=== PATIENT | female | born 1960 | race Caucasian/White ===

== ENCOUNTER 2017-08-04 10:15 | Inpatient (IN) | payer BC, OTHER ==
[2017-08-04] MEDS ORDERED: ACETAMINOPHEN 500 MG TAB PO ONE (10:58)
[2017-08-04] MEDS ORDERED: ceFAZolin 2 GM/SWFI 2 GM/20 ML SYR IVP ONE (10:58)
[2017-08-04] MEDS ORDERED: morphINE PF 0.2 MG in SYRINGE INTRATHECAL 1 SYR IT ONE (10:58)
[2017-08-04] MEDS ORDERED: GABAPENTIN 300 MG CAP PO ONE (10:58)
[2017-08-04] MEDS ORDERED: LR 1,000 ML IV ONE (10:59)
[2017-08-04] MEDS ORDERED: LIDOCAINE 1% 2 ML INJ ID PRN (10:59)
[2017-08-04] MEDS ORDERED: ceFAZolin 2 GM/DEXTROSE 100 ML IV ONE (11:30)
[2017-08-04] MEDS ORDERED: BUPIVACAINE 0.25% 30 ML SDV ONE ×2 (12:16→14:21)
[2017-08-04] MEDS ORDERED: CHLORHEXIDINE GLUC HIBICLENS 118 ML BTL TP ONE (12:17)
[2017-08-04] MEDS ORDERED: EPINEPHrine 1 MG/ML INJ ONE (12:17)
[2017-08-04] MEDS ORDERED: BACITRACIN 50,000 UNITS/10 ML SYR IRR ONE (12:17)
[2017-08-04] MEDS ORDERED: THROMBIN (BOVINE) 20,000 UNIT VIAL TP ONE (12:17)
--- NOTE | 2017-08-04 12:39 | PDANEPAE ---
ANE Past Medical History - Cardiovascular History Hx Hypertension: Yes Hx Arrhythmias: No Hx Chest Pain: No Hx Coronary Artery / Peripheral Vascular Disease: No Hx CHF / Valvular Disease: No Hx Palpitations: No - Pulmonary History Hx COPD: No Hx Asthma/Reactive Airway Disease: No Hx Recent Upper Respiratory Infection: No Hx Oxygen in Use at Home: No Hx Sleep Apnea: No Sleep Apnea Screening Result - Last Documented: Negative - Neurologic History Hx Cerebrovascular Accident: No Hx Seizures: No Hx Dementia: No - Endocrine History Hx Diabetes: No Hypothyroid: No Hyperthyroid: No Obesity: no - Renal History Hx Renal Disorders: Yes Renal History Comment: UA LEAKAGE USES PAD. FREQUENTLY FEELS LIKE SHE NEEDS TO GO AND DOESN'T - Liver History Hx Hepatic Disorders: No - Neurological & Psychiatric Hx Hx Neurological and Psychiatric Disorders: Yes Neurological / Psychiatric History Comment: MIGRAINES TWICE A YEAR - Cancer History Hx Cancer: No - Congenital Disorder History Hx Congenital Disorders: No - GI History GERD: mild Hx Gastrointestinal Disorders: Yes Gastrointestinal History Comment: INTERMITTENT HEARTBURN USES TUMS. CONSTIPATION - Other Health History Other Health History: RADICULOPATHY. N/T SHILPA LEGS AND FEET - Chronic Pain History Chronic Pain: Yes (LOWER BACK N/T SHILPA LEGS AND FEET) - Surgical History Prior Surgeries: BLADDER SUSPENSION/MESH. SUDHA. LUMBAR LAMINECTOMY 2008. PARTIAL HYST ANE Review of Systems Review of Systems: - Exercise capacity METS (RN): 4 METS ANE Patient History - Allergies Allergies/Adverse Reactions: hydrocodone Allergy (Severe, Verified 08/04/17 11:23) Anaphylaxis promethazine [From Phenergan] Allergy (Severe, Verified 08/04/17 11:23) Combative Sulfa (Sulfonamide Antibiotics) Allergy (Unknown, Verified 08/04/17 11:23) - Home Medications Home Medications: Acetaminophen [Tylenol ES 500 mg (*)] 500 - 1,000 mg PO Q4 PRN 07/12/17 [Last Taken 08/04/17 00:00] Estradiol [Estradiol 1 MG (*)] 1 mg PO DAILY 07/12/17 [Last Taken 08/04/17 05:30 ] Herbals/Supplements -Info Only 1 ea PO DAILY 07/12/17 [Last Taken 07/28/17] Ibuprofen [Motrin (*)] 400 mg PO Q4 PRN 07/12/17 [Last Taken 07/26/17] Lisinopril [Zestril 5 mg (*)] 5 mg PO DAILY 07/12/17 [Last Taken 08/03/17 05:30] - NPO status NPO Since - Liquids (Date): 08/04/17 NPO Since - Liquids (Time): 09:00 NPO Since - Solids (Date): 08/03/17 NPO Since - Solids (Time): 17:00 - Anes Hx Anes Hx: no prior problems - Smoking Hx Smoking Status: Former smoker - Alcohol Use Alcohol Use: Rarely - Family Anes Hx Family Anes Hx: neg - N/A ANE Labs/Vital Signs - Vital Signs Blood Pressure: 134/84 Heart Rate: 64 Respiratory Rate: 14 O2 Sat (%): 96 Height: 170.18 cm Weight: 83.915 kg ANE Physical Exam - Airway Neck exam: FROM Mallampati Score: Class 2 Mouth exam: normal dental/mouth exam - Pulmonary Pulmonary: no respiratory distress, no rales or rhonchi, clear to auscultation - Cardiovascular Cardiovascular: regular rate and rhythym, no murmur, rub, or gallop - ASA Status ASA Status: II ANE Anesthesia Plan Anesthesia Plan: general endotracheal anesthesia Total IV Anesthesia: No
--- NOTE | 2017-08-04 13:11 | PDHPUP ---
History & Physical Update H&P update statement: This history and physical update is based on an assessment of the patient which was completed after admission or registration (within 24 hours), but prior to the surgery/procedure. H&P update: H&P reviewed & patient examined, no change in patient's condition since H&P completed (Consents signed and site marked. All questions answered.)
[2017-08-04] MEDS ORDERED: MIDAZOLAM 2 MG/2 ML VIAL IVP ONE (13:32)
[2017-08-04] MEDS ORDERED: ROCURONIUM 50 MG/5 ML VIAL ONE ×2 (13:43→14:32)
[2017-08-04] MEDS ORDERED: DEXAMETHASONE 4 MG/ML VIAL ONE ×2 (13:43)
[2017-08-04] MEDS ORDERED: ONDANSETRON 4 MG/2 ML VIAL ONE ×3 (13:43→18:42)
[2017-08-04] MEDS ORDERED: LIDOCAINE 2% 5 ML SDV ONE (13:44)
[2017-08-04] MEDS ORDERED: PROPOFOL 200 MG/20 ML VIAL ONE (13:45)
[2017-08-04] MEDS ORDERED: PROPOFOL/EMULSION 500 MG/50 ML BOTTLE IV ONE (13:45)
[2017-08-04] MEDS ORDERED: fentaNYL 100 MCG/2 ML INJ ONE ×5 (13:56→17:42)
[2017-08-04] MEDS ORDERED: METOCLOPRAMIDE 10 MG/2 ML VIAL IVP PRN (15:05)
[2017-08-04] MEDS ORDERED: PHENYLEPHRINE HCL 100 MCG/ML SYR IVP PRN (15:05)
[2017-08-04] MEDS ORDERED: epHEDrine SULFATE 10 MG/ML SYR IVP PRN (15:05)
[2017-08-04] MEDS ORDERED: oxyCODONE IR 5 MG TAB PO PRN (15:05)
[2017-08-04] MEDS ORDERED: NALOXONE HCL 0.4 MG/ML INJ IVP PRN ×2 (15:05→19:58)
[2017-08-04] MEDS ORDERED: ACETAMINOPHEN 500 MG TAB PO PRN (15:05)
[2017-08-04] MEDS ORDERED: LR 500 ML IV PRN (15:05)
[2017-08-04] MEDS ORDERED: HYDROmorphONE/DILAUDID 2 MG/ML INJ IVP PRN (15:05)
[2017-08-04] MEDS ORDERED: ONDANSETRON 4 MG/2 ML VIAL IVP PRN (15:10)
[2017-08-04] MEDS ORDERED: BISACODYL 10 MG SUPP PR PRN (15:10)
[2017-08-04] MEDS ORDERED: POLYETHYLENE GLYCOL 3350 17 GM PKT PO PRN (15:10)
[2017-08-04] MEDS ORDERED: LACTULOSE 20 GM/30 ML UDCUP PO PRN (15:10)
[2017-08-04] MEDS ORDERED: MAGNESIUM HYDROXIDE 30 ML UDCUP PO PRN (15:10)
[2017-08-04] MEDS ORDERED: SCOPOLAMINE HYDROBROMIDE 1 MG/3 DAYS PATCH TD SCH (15:15)
[2017-08-04] MEDS ORDERED: NS 1,000 ML IV SCH (15:15)
--- NOTE | 2017-08-04 15:19 | POSTOPPROG ---
Post Op Note Date of Operation: 08/05/17 Surgeon: Pallavi De Paz Vibration Analyst: RANDAL De Paz PAC Anesthesia: GET(General Endotracheal) Pre-op Diagnosis: lumbar stenosis, radiculopathy Post-op Diagnosis: lumbar stenosis, radiculopathy Indication: lumbar stenosis, radiculopathy Procedure: Right redo decompression/laminectomy L5/S1; L5/S1 TLIF/PSF Inf/Abcess present in the surg proc area at time of surgery?: No EBL: 50-100 Drains: Douglas REED Addendum - Addendum .: S: Low back pain O: NAD A&Ox3 MAEx4 5/5 and equal in BUE and BLE, except right HF 5-/5 A/p 56y/o s/p Right redo decompression/laminectomy L5/S1; L5/S1 TLIF/PSF -Advance diet as tolerated -Optimize pain management -JPx1 -Post op xrays pending -DVT prophx: TEDs, SCDs, Lovenox POD1 -PT/OT -Please notify NS with any change in neuro/motor exam
[2017-08-04] MEDS: DIAZEPAM 5 MG/ML 1 ML SYR IVP PRN ×4 (16:56→17:40)
[2017-08-04] MEDS ORDERED: DIAZEPAM 5 MG/ML 1 ML SYR ONE ×2 (16:56→17:14)
[2017-08-04] MEDS ORDERED: LABETALOL HCL 5 MG/ML 20 ML MDV IVP PRN (17:07)
--- NOTE | 2017-08-04 17:08 | POSTANESTH ---
Post Anesthetic Evaluation Cardiovascular Status: Similar to Pre-Op Cond, Tx Hyper/Hypo-tension Respiratory Status: Normal, Stable Level of Consciousness/Mental Status: Can Participate in Eval Pain Control: Inadeq, Add Tx Required Nausea/Vomiting Control: Adequate, Prn Tx Ordered Complications Possibly Related to Anesthesia: None Noted
[2017-08-04] MEDS ORDERED: HYDROmorphONE/DILAUDID 1 MG/ML INJ ONE ×2 (17:14→17:42)
[2017-08-04] MEDS: fentaNYL 100 MCG/2 ML INJ IVP PRN ×6 (17:18→18:32)
[2017-08-04] MEDS: HYDROmorphONE/DILAUDID 1 MG/ML INJ IVP PRN ×6 (17:26→18:31)
--- NOTE | 2017-08-04 17:30 | GOP ---
[f rep st] OPERATIVE REPORT DATE OF OPERATION: 08/04/2017 SURGEON: Corey Tyler MD SKEIN STRAIGHTENER: Pallavi De Paz PA-C. ANESTHESIA: General. PREOPERATIVE DIAGNOSIS: 1. L5-S1 lumbar spondylosis with history of prior right-sided decompression. 2. Low back pain. 3. Radiculopathy. 4. Treatment refractory to nonoperative intervention. 5. Right lower extremity weakness. POSTOPERATIVE DIAGNOSIS: 1. L5-S1 lumbar spondylosis with history of prior right-sided decompression. 2. Low back pain. 3. Radiculopathy. 4. Treatment refractory to nonoperative intervention. 5. Right lower extremity weakness. PROCEDURE PERFORMED: 1. Posterior arthrodesis with approach to L5 and S1. 2. Posterolateral fusion with bilateral pedicle screw placement in L5 and S1 from the Fio 4.75 System. 3. Redo right-sided L5-S1 decompressive laminectomy with left-sided foraminotomy and redo right-sided hemilaminotomy for nerve root decompression. 4. Right-sided L5-S1 transforaminal lumbar interbody fusion 8 x 26 mm titanium coated PEEK cage filled with morselized autograft and allograft. 5. Posterolateral fusion on the left between L5-S1 with morselized autograft and allograft. 6. Use of intraoperative 3D Stealth Navigation. 7. Use of intraoperative fluoroscopy, less than 1-hour physician time. 8. Use of neuromonitoring. 9. Use of operating microscope. 10. Injection of preservative-free intrathecal narcotics. COMPLICATIONS: None. FINDINGS: per imaging SPECIMENS: None. ESTIMATED BLOOD LOSS: 100 mL. INDICATIONS: The patient is a 56-year-old woman, who has undergone a prior right-sided L5-S1 decompression. She developed progressive low back pain with right lower extremity radiculopathy and weakness. She had evidence of spondylosis, L5-S1, severe disk height loss with bilateral lateral recess foraminal stenosis. After discussion of the risks, benefits, and alternatives, after failing nonoperative intervention, we decided to proceed forth with surgery as described above. DESCRIPTION OF PROCEDURE: Patient was brought to the operating theater and underwent general endotracheal anesthesia without complications. Venodynes, ELLEN hose and the appropriate lines were placed by Anesthesia. She was flipped prone onto the Douglas table. All bony prominences were inspected and padded. The previous lumbar incision was identified and marked and this area then prepped and draped in the usual sterile surgical fashion. A time-out was completed per protocol. The patient was given antibiotics within 1 hour of incision. The incision was infiltrated with Marcaine with epinephrine. The incision was taken down with the scalpel blade and using monopolar, taken down the midline to the lumbodorsal fascia. A subperiosteal dissection was carried out to the transverse processes of L5-S1 bilaterally with care to preserve the bilateral L4 -5 facet joints. Care was taken to avoid the prior right-sided L5-S1 hemilaminotomy defect. A deep retractor was placed to maintain our exposure. We confirmed our level using lateral fluoroscopy. We attached the 3D Stealth Navigation clamp to the spinous process of L5 and completed a 3D Stealth Navigation spin. Using 3D Stealth Navigation we placed the linux programmer holes for the bilateral pedicle screws in L5 and S1. All holes were manually palpated with no evidence of any cortical breaches. We then tapped and placed 6.5 x 35 mm screws bilaterally in L5 and 6.5 x 50 mm screws bilaterally at S1 from the [employer] Solera 4.75 System. Another 3D Stealth Navigation spin demonstrated good placement of the hardware. At this point, the microscope was brought into the field to assist with microscopic dissection and to maintain illumination and magnification. Using a combination of the bur tip on the drill bit, Kerrison punches, Leksell rongeur, we completed a redo decompressive laminectomy, L5-S1. The tissue was noted be extremely scarred and adherent to the right side at the previous hemilaminotomy defect. We completed an aggressive facetectomy on the right side between L5-S1 and distracted the disc space. We completed a right-sided L5-S1 diskectomy and prepared the cartilaginous endplates and measured the interbody space. We placed an 8 x 26 mm titanium coated PEEK cage filled with morselized autograft and allograft anteriorly and towards midline. We packed additional morcellized autograft into the disk space for the interbody fusion. We let down distraction and decorticated the bone on the left side between L5 and S1 for the posterolateral fusion. We completed a foraminotomy on the left side at L5- S1 with a #2 Kerrison until everything felt well decompressed to manual palpation. The wound was irrigated copiously with bacitracin irrigation. We placed 2-lordotic rods into the heads of the screws between L5 and S1 and secured them down with cap screws, which were then tightened per the warp starter's setting. We placed morselized autograft and allograft on the left side between L5-S1 with bone for the posterolateral fusion. We injected preservative-free intrathecal narcotics. A drain was left in the subfascial space and the wound then closed in multiple layers including Vicryl sutures for the deep layers and Dermabond for the skin. The patient's wounds were dressed sterilely. She was flipped supine onto the transfer cart. She was awakened, extubated, taken to the recovery room in stable condition. There were no complications and no noted changes on neuromonitoring throughout the procedure. /[id number]/MODL MTDD
[2017-08-04] MEDS: ONDANSETRON 4 MG/2 ML VIAL IVP PRN ×2 (18:00→18:43)
[2017-08-04] MEDS ORDERED: NALOXONE HCL 0.4 MG/ML INJ ONE (19:12)
[2017-08-04] MEDS ORDERED: HYDROmorphONE/DILAUDID 6 MG/30 ML PCA IV PRN (19:58)
[2017-08-04] MEDS: FAMOTIDINE 20 MG TAB PO SCH (20:59)
[2017-08-04] MEDS: SENNOSIDES/DOCUSATE SODIUM TAB PO SCH (20:59)
[2017-08-04] MEDS: diphenhydrAMINE 25 MG CAP PO PRN (21:02)
[2017-08-04] MEDS: ceFAZolin 2 GM/DEXTROSE 100 ML IV SCH (21:51)
[2017-08-04] MEDS: ACETAMINOPHEN 500 MG TAB PO SCH (21:51)
[2017-08-05] MEDS: METHOCARBAMOL 500 MG TAB PO PRN ×3 (04:43→19:37)
[2017-08-05] MEDS: diphenhydrAMINE 25 MG CAP PO PRN ×2 (04:43→06:33)
--- NOTE | 2017-08-05 05:19 | PDMN ---
Medical Necessity Medical necessity: Pt meets INPT criteria per MD and [facility] S-820 Lumbar Fusion (R redo decompression/laminectomy L5/S1, L5/S1 TLIF/PSF - MC IPO surgery).
[2017-08-05] MEDS: ACETAMINOPHEN 500 MG TAB PO SCH ×3 (05:41→21:18)
[2017-08-05] MEDS: ceFAZolin 2 GM/DEXTROSE 100 ML IV SCH (05:41)
[2017-08-05] MEDS: oxyCODONE IR 5 MG TAB PO PRN ×5 (06:33→21:19)
[2017-08-05] MEDS: LISINOPRIL 5 MG TAB PO SCH (07:40)
[2017-08-05] MEDS: ESTRADIOL 1 MG TAB PO SCH (07:40)
[2017-08-05] MEDS: SENNOSIDES/DOCUSATE SODIUM TAB PO SCH ×2 (07:40→21:18)
[2017-08-05] MEDS: FAMOTIDINE 20 MG TAB PO SCH ×2 (07:41→21:22)
[2017-08-05] MEDS: ENOXAPARIN 40 MG/0.4 ML SYR SC SCH (07:41)
--- NOTE | 2017-08-05 08:58 | NEUSURGPN ---
Assessment/Plan: A/P 56y/o s/p Right redo decompression/laminectomy L5/S1; L5/S1 TLIF/PSF POD1 -Optimize pain management, has hydrocodone anaphalyxis, okay with oxycdone but some nausea, scopolamine patch orderd and applied -Continue JPx1 -Post op xrays pending -DVT prophx: TEDs, SCDs, Lovenox POD1 -PT/OT -Please notify NS with any change in neuro/motor exam -Seen with Dr. Tyler Subjective: Low back pain, denies any new leg pain Objective: NAD A&Ox3 MAEx4 5/5 and equal in BUE and BLE, except right HF 5-/5. Incision c/ d/i. KRISTIN drain serosanguineous Catheter Insertion Date: 08/04/17 - Physician Patient Seen by : N[facility] Neurosurgery Physical Exam - Vitals, I&O, Labs I and O 08/04/17 08/05/17 08/06/17 05:59 05:59 05:59 Intake Total 3360 Output Total 2915 Balance 445 Weight 83.915 kg Intake: Oral (ml) 650 IV Intake (ml) 2500 IV Infused (ml) 210 ceFAZolin 2 GM/DEXTROSE 210 100 ml @ 200 mls/hr IV Q8HRS KIERRA Rx#:[id number] Output: Urine (ml) 2795 Catheter 2795 Estimated Blood Loss (ml) 120 Vital Signs Temp Pulse Resp BP Pulse Ox 36.9 C 72 16 130/79 H 95 08/05/17 08:54 08/05/17 08:54 08/05/17 08:54 08/05/17 08:54 08/05/17 08:54 ICD10 Worksheet Patient Problems: Problems Problem Status Onset Lumbar radiculopathy Acute - ICD10 Problem Qualifiers (1) Lumbar radiculopathy
[2017-08-05] MEDS ORDERED: DIAZEPAM 5 MG/ML 1 ML SYR IVP PRN (11:48)
[2017-08-05] MEDS: DIAZEPAM 5 MG TAB PO PRN ×2 (11:59→19:37)
--- NOTE | 2017-08-05 14:11 | ASMTCMCOM ---
CM Note CM Note Notes: Pt s/p R redo decompression/laminectomy L5/S1 and L5/S1 TLIF/PSF. OT rec home, PT rec 24 hours supervision. Pt reports her is retired and will provide support/supervision. Pt from [place], likely d/c 1-2 days. Anticipate pt will d/c when medically stable. No CM d/c needs identified. CM available for changes/needs. D/c plan of care: Home with family support/supervision. Date Signed: 08/05/2017 02:10 PM Electronically Signed By:CYRIL Jones
[2017-08-06] MEDS: DIAZEPAM 5 MG TAB PO PRN (01:49)
[2017-08-06] MEDS: METHOCARBAMOL 500 MG TAB PO PRN ×4 (01:49→23:04)
[2017-08-06] MEDS: oxyCODONE IR 5 MG TAB PO PRN ×5 (01:51→23:04)
[2017-08-06] MEDS: ONDANSETRON DISINTEGRATING 4 MG TAB PO PRN (05:18)
[2017-08-06] MEDS: ACETAMINOPHEN 500 MG TAB PO SCH ×4 (05:19→21:25)
[2017-08-06] MEDS: ENOXAPARIN 40 MG/0.4 ML SYR SC SCH (08:43)
[2017-08-06] MEDS: LISINOPRIL 5 MG TAB PO SCH (08:50)
[2017-08-06] MEDS: ESTRADIOL 1 MG TAB PO SCH (08:50)
[2017-08-06] MEDS: SENNOSIDES/DOCUSATE SODIUM TAB PO SCH ×2 (08:50→21:25)
[2017-08-06] MEDS: FAMOTIDINE 20 MG TAB PO SCH ×2 (08:50→21:25)
--- NOTE | 2017-08-06 09:24 | SOAPPROG ---
SOAP Progress Note Assessment/Plan: Assessment: 56 yo F POD #2 L5/S1 TLIF Plan: stable and doing well overall :) PT/OT scd/lila/lovenox for DVT prophylaxis work on improving pain management post op x-rays look great please call with neuro changes discussed with Dr Rivera 08/06/17 09:22 Subjective: continued back pain, no leg pain, no weakness. Objective: Vital Signs Temp Pulse Resp BP Pulse Ox 36.6 C 94 16 107/73 96 08/06/17 07:42 08/06/17 07:42 08/06/17 07:42 08/06/17 07:42 08/06/17 07:42 08/05/17 08/06/17 08/07/17 05:59 05:59 05:59 Intake Total 3360 1300 350 Output Total 2915 85 Balance 445 1215 350 AAOx4, +FC PERRL, EOMI, no facial droop 5/5 + light touch C/D/I ICD10 Worksheet Patient Problems: Problems Problem Status Onset Lumbar radiculopathy Acute
[2017-08-07] MEDS: DIAZEPAM 5 MG TAB PO PRN (02:33)
[2017-08-07] MEDS: ONDANSETRON DISINTEGRATING 4 MG TAB PO PRN (04:19)
[2017-08-07] MEDS: ACETAMINOPHEN 500 MG TAB PO SCH ×2 (05:22→13:17)
--- NOTE | 2017-08-07 06:52 | SOAPPROG ---
SOAP Progress Note Assessment/Plan: Assessment: 56 yo F POD #3 L5/S1 TLIF Plan: stable ? Ileus: some N/V last night but patient had 3 BM yesterday. Will continue to watch for now. Can consider NG if needed PT/OT scd/lila/lovenox for DVT prophylaxis work on improving pain management post op x-rays look great please call with neuro changes discussed with Dr Rivera 08/06/17 09:22 08/07/17 06:50 Subjective: back pain improving, no N/V. no leg pain. Objective: Vital Signs Temp Pulse Resp BP Pulse Ox 36.3 C 95 18 109/71 96 08/06/17 23:34 08/06/17 23:34 08/06/17 23:34 08/06/17 23:34 08/06/17 23:34 08/06/17 08/07/17 08/08/17 05:59 05:59 05:59 Intake Total 1300 1800 Output Total 85 100 15 Balance 1215 1700 -15 AAOx4, +FC PERRL, EOMI, no facial droop JEROD x 4 + light touch C/D/I ICD10 Worksheet Patient Problems: Problems Problem Status Onset Lumbar radiculopathy Acute
[2017-08-07] MEDS: oxyCODONE IR 5 MG TAB PO PRN ×2 (06:53→11:30)
[2017-08-07] MEDS: ESTRADIOL 1 MG TAB PO SCH (09:57)
[2017-08-07] MEDS: ENOXAPARIN 40 MG/0.4 ML SYR SC SCH (09:57)
[2017-08-07] MEDS: LISINOPRIL 5 MG TAB PO SCH (09:57)
[2017-08-07] MEDS: FAMOTIDINE 20 MG TAB PO SCH (09:57)
[2017-08-07] MEDS: SENNOSIDES/DOCUSATE SODIUM TAB PO SCH (09:58)
[2017-08-07 10:06] VITALS: BP 116/78
[2017-08-07] MEDS: METHOCARBAMOL 500 MG TAB PO PRN (11:34)
[2017-08-07] MEDS ORDERED: PATCH REMOVAL 1 EA PATCH TD SCH (15:15)
--- NOTE | 2017-08-07 16:29 | ASMTLACE ---
[place] Length of stay for Answers: 3 days current admission Acuity / Level of Answers: Yes Care: Did the patient have an inpatient admission? Comorbidities - select Answers: Other Notes: Hypertension all that apply # of Emergency department Answers: 0 visits in the last 6 months Score: 7 Date Signed: 08/07/2017 04:28 PM Electronically Signed By:Rhonda Ley RN
--- NOTE | 2017-08-07 16:40 | ASDISCHSUM ---
Discharge Information Plan Status:Home with No Needs Medically Cleared to Leave:08/07/2017 Discharge Date:08/07/2017 01:54 PM CM D/C Disposition:Home, Routine, Self-Care ADT D/C Disposition:Home, Routine, Self-Care Projected Discharge Date:08/07/2017 01:54 PM Transportation at D/C:Family Discharge Delay Reason: Follow-Up Date:08/07/2017 01:54 PM Discharge Slot:2 - 12:01 pm - 18:00 pm Final Diagnosis:s/p L5-S1 TLIF, radiculopathy, back pain, weakness Placement Information Patient Contact Information Contact Name:KHANH Relationship: Address: Work Phone: City: [facility] Phone: [facility] Code: Email: Financial Information Financial Class:HMO and PPO Plans Primary Plan Desc: OUT OF STATE PPO Primary Plan Number:[id number] Secondary Plan Desc: Secondary Plan Number: Assessment Information LACE LACE Length of stay for Answers: 3 days current admission Acuity / Level of Answers: Yes Care: Did the patient have an inpatient admission? Comorbidities - select Answers: Other Notes: Hypertension all that apply # of Emergency department Answers: 0 visits in the last 6 months Score: 7 Date Signed: 08/07/2017 04:28 PM Electronically Signed By:Rhonda Ley RN [facility] CM Progress Note CM Note CM Note Notes: Pt s/p R redo decompression/laminectomy L5/S1 and L5/S1 TLIF/PSF. OT rec home, PT rec 24 hours supervision. Pt reports her is retired and will provide support/supervision. Pt from [place], likely d/c 1-2 days. Anticipate pt will d/c when medically stable. No CM d/c needs identified. CM available for changes/needs. D/c plan of care: Home with family support/supervision. Date Signed: 08/05/2017 02:10 PM Electronically Signed By:CYRIL Jones Case Management Discharge Plan Note Case Management Discharge Discharge Order Complete? Answers: Yes Patient to Obtain Answers: Independently Medications Transportation Arranged Answers: Family/Friends Transport will Pick (Date 08/07/2017 12:00 AM & Time) EMTALA Complete Answers: No Notes: N/A Case Management Transport Answers: No Notes: N/A Form Complete Faxed Final Orders Answers: No Notes: N/A Agency/Facility Transfer Answers: No Notes: N/A Report Printed & Faxed to Receiving Agency Family Notified Answers: Yes Notes: at bedside Discharge Comments Notes: Reviewed chart, spoke with FAM Blank regarding discharge plan of care, pt's progress. Per KIMBERLYN Walker, pt to discharge home independently with family support. Pt offered option to stay secondary to nausea, pt declined, requesting to go home today. Pt lives with her in [place]. No IM signed, not applicable. Pt to follow up as directed. CM available for any further issues or concerns. Discharge Plan: Home Independently with family support Date Signed: 08/07/2017 04:39 PM Electronically Signed By:Rhonda Ley RN Intervention Information
== END 2017-08-07 13:54 | disposition home or self-care (01) | DRG 460 ==
LOC: F3N 10:39
PROVIDERS: ADMIT Neurological Surgery; ATTEND Neurological Surgery
PROC: 8E0WXBF Computer Assisted Procedure of Trunk Region, With Fluoroscopy (ICD-10-PCS; principal; 2017-08-04 12:45)
PROC: 4A1004G Monitoring of Central Nervous Electrical Activity, Intraoperative, Open Approach (ICD-10-PCS; principal; 2017-08-04 12:45)
PROC: 3E0S3BZ Introduction of Anesthetic Agent into Epidural Space, Percutaneous Approach (ICD-10-PCS; principal; 2017-08-04 12:45)
PROC: 0SG30AJ Fusion of Lumbosacral Joint with Interbody Fusion Device, Posterior Approach, Anterior Column, Open Approach (ICD-10-PCS; principal; 2017-08-04 12:45)
PROC: 00NY0ZZ Release Lumbar Spinal Cord, Open Approach (ICD-10-PCS; principal; 2017-08-04 12:45)
PROC: BR191ZZ Fluoroscopy of Lumbar Spine using Low Osmolar Contrast (ICD-10-PCS; 2017-08-04 12:45)
DX: M47.27 Other spondylosis with radiculopathy, lumbosacral region (principal); M48.07 Spinal stenosis, lumbosacral region; M51.37 Other intervertebral disc degeneration, lumbosacral region; M51.27 Other intervertebral disc displacement, lumbosacral region; M54.40 Lumbago with sciatica, unspecified side; R32 Unspecified urinary incontinence; M62.81 Muscle weakness (generalized); I10 Essential (primary) hypertension; K21.9 Gastro-esophageal reflux disease without esophagitis; G47.00 Insomnia, unspecified; Z87.891 Personal history of nicotine dependence; Z87.19 Personal history of other diseases of the digestive system; Z88.2 Allergy status to sulfonamides
CPT/HCPCS: 97116-GP; 97161-GP; 97165-GO; 97530-GO; 97530-GP; 97535-GO; C1713; J0171; J0690; J1100; J1170; J1200; J1650; J2250; J2270; J2274; J2310; J2370; J2405; J2704; J3010; J3360

== ENCOUNTER → 2017-09-16 | Outpatient (CLI) | payer BC | LOC: FIMAGING 09:32 | PROVIDERS: ATTEND Physician Assistant | DX: Z47.89 Encounter for other orthopedic aftercare (principal); Z98.1 Arthrodesis status ==